=== PATIENT | male | born 1955 | race Caucasian/White ===

== ENCOUNTER 2017-11-06 15:27 | Emergency (ER) | payer OTHER ==
[~2017-11-06] VITALS: Ht 177.8 cm; Wt 85.0 kg
[2017-11-06] MEDS ORDERED: aspirin 81mg tab.chew PO ONE (15:50)
[2017-11-06 15:58] LABS: BASOPHILS % (AUTO) 0.3 % (0-1); EOSINOPHILS % (AUTO) 0.3 % (0-6); HEMATOCRIT 44.1 % (42.0-52.0); HEMOGLOBIN 15.2 g/dl (14.0-17.9); LYMPHOCYTES # (AUTO) 1.1 X10'3 (1.1-4.8); LYMPHOCYTES % (AUTO) 14.3 % (21-51); MEAN CORPUSCULAR HEMOGLOBIN 30.9 PG (27.0-31.0); MEAN CORPUSCULAR HGB CONC 34.5 % (33.0-36.5); MEAN CORPUSCULAR VOLUME 89.5 FL (78-98); MEAN PLATELET VOLUME 8.4 FL (7.4-10.4); MONOCYTES # (AUTO) 0.4 X10'3 (0-0.9); NEUTROPHILS # (AUTO) 6.4 X10'3 (1.8-7.7); NEUTROPHILS % (AUTO) 80.1 % (42-75); PLATELET COUNT 206 X10'3 (140-440); RED BLOOD COUNT 4.92 X10'6 (4.70-6.10)
[2017-11-06 16:09] LABS: PARTIAL THROMBOPLASTIN TIME 26 SECONDS (22-32); PROTHROMBIN TIME 10.2 SECONDS (9.0-12.0)
[2017-11-06 16:13] LABS: ALANINE AMINOTRANSFERASE 47 U/L (12-78); ALBUMIN 3.9 G/DL (3.4-5.0); ALKALINE PHOSPHATASE 61 IU/L (46-116); ANION GAP 11 (8-16); ASPARTATE AMINO TRANSFERASE 24 U/L (10-37); BILIRUBIN,TOTAL 0.5 MG/DL (0.1-1.0); BLOOD UREA NITROGEN 19 MG/DL (7-18); BUN/CREATININE RATIO 20.7 (5.4-32.0); CHLORIDE 106 MMOL/L (99-107); CREATININE 0.92 MG/DL (0.60-1.10); GLUCOSE 100 MG/DL (70-104); POTASSIUM 3.8 MMOL/L (3.5-5.1); SODIUM 142 MMOL/L (135-145); TOTAL CARBON DIOXIDE 24.6 MMOL/L (24-32); eGFR 83 ML/MIN
[2017-11-06 16:37] VITALS: BP 156/110
== END 2017-11-06 16:38 | disposition home or self-care (01) ==
LOC: ER 15:27
DX: I44.7 Left bundle-branch block, unspecified (principal)
CPT/HCPCS: 36415; 71045; 80053; 84484; 85025; 85610; 85730; 93005; 99285

== ENCOUNTER 2019-04-09 06:12 | Day surgery (SDC) | payer MEDICARE, BC ==
[2019-04-08 09:51] LABS: BASOPHILS % (AUTO) 0.4 % (0-1); EOSINOPHILS # (AUTO) 0.1 X10'3 (0-0.9); EOSINOPHILS % (AUTO) 1.2 % (0-6); HEMATOCRIT 44.1 % (42.0-52.0); HEMOGLOBIN 14.9 g/dl (14.0-17.9); LYMPHOCYTES # (AUTO) 1.5 X10'3 (1.1-4.8); LYMPHOCYTES % (AUTO) 19.3 % (21-51); MEAN CORPUSCULAR HEMOGLOBIN 31.3 PG (27.0-31.0); MEAN CORPUSCULAR HGB CONC 33.9 g/dL (33.0-36.5); MEAN CORPUSCULAR VOLUME 92.3 FL (78-98); MEAN PLATELET VOLUME 8.4 FL (7.4-10.4); MONOCYTES # (AUTO) 0.6 X10'3 (0-0.9); MONOCYTES % (AUTO) 7.3 % (2-12); NEUTROPHILS # (AUTO) 5.7 X10'3 (1.8-7.7); NEUTROPHILS % (AUTO) 71.8 % (42-75); PLATELET COUNT 188 X10'3 (140-440); RED BLOOD COUNT 4.78 X10'6 (4.70-6.10); RED CELL DISTRIBUTION WIDTH 14.4 % (11.5-14.5); WHITE BLOOD COUNT 7.9 X10'3 (4.5-11.0)
[2019-04-08 10:02] LABS: PARTIAL THROMBOPLASTIN TIME 28 SECONDS (22-32)
[2019-04-08 10:04] LABS: ALANINE AMINOTRANSFERASE 47 U/L (12-78); ALBUMIN 3.8 G/DL (3.4-5.0); ALKALINE PHOSPHATASE 52 IU/L (46-116); ANION GAP 8 (8-16); ASPARTATE AMINO TRANSFERASE 20 U/L (10-37); BILIRUBIN,TOTAL 0.9 MG/DL (0.1-1.0); BLOOD UREA NITROGEN 22 MG/DL (7-18); BUN/CREATININE RATIO 22.7 (5.4-32.0); CALCIUM 8.9 MG/DL (8.5-10.1); CHLORIDE 108 MMOL/L (99-107); CHOL/HDL RATIO 3.3 (0.00-4.99); CHOLESTEROL 140 MG/DL (0-200); CREATININE 0.97 MG/DL (0.60-1.10); GLUCOSE 87 MG/DL (70-104); HDL CHOLESTEROL 43 MG/DL (35-60); LDL CHOLESTEROL 89 MG/DL (50-100); POTASSIUM 4.4 MMOL/L (3.5-5.1); SODIUM 144 MMOL/L (135-145); TOTAL CARBON DIOXIDE 28.1 MMOL/L (24-32); TOTAL PROTEIN 7.5 G/DL (6.4-8.2); TRIGLYCERIDES 46 MG/DL (20-135); eGFR 78 ML/MIN
[~2019-04-09] VITALS: Ht 180.3 cm; Wt 87.0 kg
[2019-04-09] VITALS (14 sets, daily range): BP systolic 152–171; BP diastolic 78–104
[2019-04-09] MEDS ORDERED: diphenhydrAMINE 25mg capsule PO PRN (06:30)
[2019-04-09] MEDS ORDERED: normal saline 1,000 ML IV SCH (06:30)
[2019-04-09] MEDS ORDERED: LORazepam 0.5 MG tablet PO PRN (06:30)
[2019-04-09] MEDS ORDERED: MULT-933 PO (07:01)
[2019-04-09] MEDS ORDERED: OMEG1CAP2 PO (07:01)
[2019-04-09] MEDS ORDERED: ROSU10TA2 PO (07:01)
[2019-04-09] MEDS ORDERED: ASPI-1265 PO (07:12)
[2019-04-09] MEDS ORDERED: CARV-49 PO (07:12)
[2019-04-09] MEDS ORDERED: LOSA25TA96 PO (07:12)
[2019-04-09] MEDS ORDERED: LIDOcaine/PRILOcaine 5gm cream TP STA (07:15)
[2019-04-09] MEDS ORDERED: LIDOcaine 1% (10mg/ml)w/preservative injection 20ml MDV ONE (07:28)
[2019-04-09] MEDS ORDERED: iohexol 350MG/ML 100ml bottle IV ONE (07:28)
[2019-04-09] MEDS ORDERED: iohexol 350 MG/ML 50ML vial IV ONE ×2 (07:28→08:46)
[2019-04-09] MEDS ORDERED: verapamil 2.5 mg/ml inj IV ONE (07:29)
[2019-04-09] MEDS ORDERED: heparin 1,000unit/ml 10ml vial 10 ML ONE (07:29)
[2019-04-09] MEDS ORDERED: fentaNYL/PF 50MCG/1 ML 2ML syringe ONE (07:29)
[2019-04-09] MEDS ORDERED: midazolam 2 mg/2 ml injection ONE (07:29)
[2019-04-09] MEDS ORDERED: nitroGLYCERIN-Tridil 50MG/D5W 250 ML IV ONE (07:30)
[2019-04-09 08:45] LABS: ISTAT Hct MIX 42 %PCV (42-52); ISTAT O2 SATURATION MIX VENOUS 62 % (60-80); ISTAT SOURCE MIX
[2019-04-09] MEDS ORDERED: normal saline 1000ml 1,000 ML IV SCH (10:10)
[2019-04-09] MEDS ORDERED: HYDROcodone/acetaminophen 10/325mg tab PO PRN (10:40)
[2019-04-09] MEDS ORDERED: acetaminophen 325mg tablet PO PRN (10:40)
[2019-04-09] MEDS ORDERED: hydrALAZINE 25 MG tablet PO STA (14:00)
== END 2019-04-09 15:05 | disposition home or self-care (01) ==
LOC: SSTAY O 06:12
PROVIDERS: ATTEND Internal Medicine Cardiovascular Disease
DX: I25.10 Atherosclerotic heart disease of native coronary artery without angina pectoris (principal); I35.1 Nonrheumatic aortic (valve) insufficiency; I42.0 Dilated cardiomyopathy; I10 Essential (primary) hypertension; I49.5 Sick sinus syndrome; F12.90 Cannabis use, unspecified, uncomplicated; Z72.89 Other problems related to lifestyle
CPT/HCPCS: 36415; 80053; 80061; 82803; 85014; 85025; 85610; 85730; 93005; 93306; 93461; 93567; 99152; 99153; C1769; C1894; J1644; J2001; J2250; J3010; J7030; Q0163; Q9967; 93460; A4620; A5120; C1760; J3490

== ENCOUNTER 2019-06-03 06:28 | Day surgery (SDC) | payer MEDICARE, BC ==
[2019-06-01 11:43] LABS: CLARITY,URINE CLEAR (Clear); COLOR,URINE YELLOW (Yellow); GLUCOSE, URINE NEGATIVE (Neg); KETONES,URINE NEGATIVE (Neg); LEUKOCYTE ESTERASE ,URINE NEGATIVE (Neg); NITRITES, URINE NEGATIVE (Neg); OCCULT BLOOD,URINE NEGATIVE (Neg); PH,URINE 5.5 (4.8-8.0); PROTEIN,URINE NEGATIVE (Neg); UROBILINOGEN,URINE 0.2 E.U/dL (0.2-1.0)
[2019-06-01 11:48] LABS: BASOPHILS % (AUTO) 0.7 % (0-1); EOSINOPHILS # (AUTO) 0.1 X10'3 (0-0.9); EOSINOPHILS % (AUTO) 1.7 % (0-6); LYMPHOCYTES # (AUTO) 1.8 X10'3 (1.1-4.8); LYMPHOCYTES % (AUTO) 26.3 % (21-51); MEAN CORPUSCULAR HGB CONC 34.4 g/dL (33.0-36.5); MEAN PLATELET VOLUME 8.4 FL (7.4-10.4); MONOCYTES # (AUTO) 0.7 X10'3 (0-0.9); MONOCYTES % (AUTO) 9.8 % (2-12); NEUTROPHILS # (AUTO) 4.2 X10'3 (1.8-7.7); NEUTROPHILS % (AUTO) 61.5 % (42-75); PRE OP HEMATOCRIT 42.8 % (42.0-52.0); PRE OP HEMOGLOBIN 14.7 g/dL (14.0-17.9); PRE OP PLATELET COUNT 181 X10'3 (140-440); RED BLOOD COUNT 4.61 X10'6 (4.70-6.10); RED CELL DISTRIBUTION WIDTH 14.1 % (11.5-14.5)
[2019-06-01 11:55] LABS: PRE OP PROTIME 10.5 SECONDS (9.0-12.0)
[2019-06-01 11:57] LABS: UA COLLECTION TYPE CLN CATCH MIDSTREAM
[2019-06-01 11:58] LABS: ALBUMIN 3.8 G/DL (3.4-5.0); ALBUMIN/GLOBULIN RATIO 0.9 (1.1-1.5); ALKALINE PHOSPHATASE 60 IU/L (46-116); BLOOD UREA NITROGEN 29 MG/DL (7-18); BUN/CREATININE RATIO 28.7 (5.4-32.0); CALCIUM 9.2 MG/DL (8.5-10.1); CHLORIDE 106 MMOL/L (99-107); CREATININE 1.01 MG/DL (0.60-1.10); PRE OP ALT 45 U/L (30-65); PRE OP ANION GAP 5 (8-16); PRE OP AST 27 U/L (10-37); PRE OP BILIRUB, TOTAL 0.6 MG/DL (0.0-1.0); PRE OP GLUCOSE 95 MG/DL (70-104); PRE OP SODIUM 139 MMOL/L (135-145); TOTAL CARBON DIOXIDE 28.4 MMOL/L (24-32); TOTAL PROTEIN 7.9 G/DL (6.4-8.2); eGFR 74 ML/MIN
[~2019-06-03] VITALS: Ht 180.3 cm; Wt 88.5 kg
[2019-06-03] VITALS (10 sets, daily range): BP systolic 142–175; BP diastolic 81–99
[~2019-06-03 06:28] MED LIST: ASPI-1265 PO; CARV-49 PO; DOCUMENT DATE & TIME OF BETA-BLOCKER PO ONE; LOSA25TA96 PO; MULT-933 PO; OMEG1CAP2 PO; ROSU10TA2 PO; cefazolin/dext.iso 2gm/50ml 50 ML IV ONE; famotidine 20mg tablet PO ONE; ringers solution, lacted 1,000 ML IV SCH
[2019-06-03] MEDS ORDERED: ceFAZolin 1000mg inj ONE ×2 (07:42→07:43)
[2019-06-03] MEDS ORDERED: bacitracin 15gm ointment TP ONE (07:42)
[2019-06-03] MEDS ORDERED: BUPIVAcaine/PF 2.5 mg/ml (0.25%) 30ml vial ONE (07:42)
[2019-06-03] MEDS ORDERED: ringers solution, lacted 1,000 ML IV SCH (08:16)
[2019-06-03] MEDS ORDERED: morphine 4 MG/ML inj SYRINge IV PRN ×2 (08:20)
[2019-06-03] MEDS ORDERED: ondansetron/PF 4mg/2ml inj IV PRN (08:20)
[2019-06-03] MEDS ORDERED: proCHLORperazine 10 MG/2 ml inj IV PRN (08:20)
[2019-06-03] MEDS ORDERED: meperidine/PF 25mg/ml syringe IV PRN ×3 (08:20)
[2019-06-03] MEDS ORDERED: sevoflurane 250ml liquid IH ONE (08:26)
[2019-06-03] MEDS ORDERED: midazolam 2 mg/2 ml injection ONE (08:29)
[2019-06-03] MEDS ORDERED: rocuronium 10mg/ml inj IV ONE (08:29)
[2019-06-03] MEDS ORDERED: propofol inj 20 ML IV ONE (08:29)
[2019-06-03] MEDS ORDERED: fentaNYL /PF 50mcg/ml 5ml ampule ONE (08:29)
[2019-06-03] MEDS ORDERED: acetaminophen 1,000mg/100ml IV 100 ML IV ONE (09:24)
[2019-06-03] MEDS ORDERED: glycopyrrolate 0.2mg/ml inj ONE (09:40)
[2019-06-03] MEDS ORDERED: neostigmine methylsulfate 1 MG/ML 10ml vial ONE (09:40)
--- NOTE | 2019-06-03 10:00 | NUR ---
Received from OR via BED , accompanied by Anesthesiologist DEBORA and report given by Anesthesiolgist. PATIENT WAKING UP, DENIES PAIN, V/S WNL, NEUROVASCULAR CHECKS INTACT, 20G PIV LUE, SCD ON, 3 BANDAIDS TO LAP SIGHTS OF ABDOMEN CDI.
[2019-06-03] MEDS ORDERED: HYDROcodone/acetaminophen 10/325mg tab PO ONE (11:00)
[2019-06-03] MEDS ORDERED: enalaprilat dihydrate 2.5mg/2ml vial IV ONE (11:05)
--- NOTE | 2019-06-03 11:06 | NUR ---
PATIENT HTN, MEDS ORDERED PER DR BERNARD SEE GINA
--- NOTE | 2019-06-03 11:45 | NUR ---
PATIENT A&OX4, DENIES PAIN, V/S WNL, NEUROVASCULAR CHECKS INTACT, 20G PIV LUE D/C, SCD OFF, 4 BANDAIDS TO LAP SIGHTS OF ABDOMEN CDI.. I HAVE REVIEWED D/C INSTRUCTIONS WITH PATIENT AND FAMILY HAVE VERBALIZED UNDERSTANDING.PATIENT WAS D/C HOME WITH ALL BELONGINGS AND FAMILY GAVE TRANSPORT HOME.
== END 2019-06-03 11:45 | disposition home or self-care (01) ==
LOC: PAS 06:28
PROVIDERS: ATTEND Surgery
DX: K43.9 Ventral hernia without obstruction or gangrene (principal); I10 Essential (primary) hypertension; E78.00 Pure hypercholesterolemia, unspecified; Z79.82 Long term (current) use of aspirin; Z79.899 Other long term (current) drug therapy; Z98.52 Vasectomy status; Z72.89 Other problems related to lifestyle; F12.90 Cannabis use, unspecified, uncomplicated; Z79.01 Long term (current) use of anticoagulants; Z80.1 Family history of malignant neoplasm of trachea, bronchus and lung; Z81.1 Family history of alcohol abuse and dependence
CPT/HCPCS: 36415; 49652; 71046; 80053; 81003; 82948; 85025; 85610; 85730; C1758; C1781; J0131; J0690; J2175; J2250; J2405; J2704; J2710; J3010; J3490; J7120; A4215; A4618; A7000

== ENCOUNTER 2019-09-02 06:17 | Inpatient (IN) | payer MEDICARE, BC ==
[2019-09-01 11:10] LABS: BASOPHILS % (AUTO) 0.6 % (0-1); EOSINOPHILS # (AUTO) 0.1 X10'3 (0-0.9); EOSINOPHILS % (AUTO) 1.6 % (0-6); HEMATOCRIT 42.2 % (42.0-52.0); HEMOGLOBIN 14.5 g/dl (14.0-17.9); LYMPHOCYTES # (AUTO) 1.5 X10'3 (1.1-4.8); LYMPHOCYTES % (AUTO) 20.8 % (21-51); MEAN CORPUSCULAR HEMOGLOBIN 31.2 PG (27.0-31.0); MEAN CORPUSCULAR HGB CONC 34.4 g/dL (33.0-36.5); MEAN CORPUSCULAR VOLUME 90.5 FL (78-98); MEAN PLATELET VOLUME 8.6 FL (7.4-10.4); MONOCYTES # (AUTO) 0.7 X10'3 (0-0.9); NEUTROPHILS # (AUTO) 5.1 X10'3 (1.8-7.7); PLATELET COUNT 194 X10'3 (140-440); RED BLOOD COUNT 4.66 X10'6 (4.70-6.10); RED CELL DISTRIBUTION WIDTH 14.6 % (11.5-14.5); WHITE BLOOD COUNT 7.4 X10'3 (4.5-11.0)
[2019-09-01 11:19] LABS: PARTIAL THROMBOPLASTIN TIME 26 SECONDS (22-32)
[2019-09-01 11:44] LABS: ALBUMIN 3.7 G/DL (3.4-5.0); ANION GAP 8 (8-16); BLOOD UREA NITROGEN 28 MG/DL (7-18); BUN/CREATININE RATIO 29.5 (5.4-32.0); CALCIUM 8.9 MG/DL (8.5-10.1); CHLORIDE 108 MMOL/L (99-107); CREATININE 0.95 MG/DL (0.60-1.10); GLUCOSE 88 MG/DL (70-104); POTASSIUM 4.4 MMOL/L (3.5-5.1); SODIUM 142 MMOL/L (135-145); TOTAL CARBON DIOXIDE 26.5 MMOL/L (24-32); eGFR 80 ML/MIN
[~2019-09-02] VITALS: Ht 177.8 cm; Wt 93.1 kg
[2019-09-02] VITALS (17 sets, daily range): BP systolic 120–152; BP diastolic 85–106
[~2019-09-02 06:17] MED LIST changes: -DOCUMENT DATE & TIME OF BETA-BLOCKER PO ONE; -cefazolin/dext.iso 2gm/50ml 50 ML IV ONE; -famotidine 20mg tablet PO ONE; -ringers solution, lacted 1,000 ML IV SCH
[2019-09-02] MEDS: normal saline 1000ml 1,000 ML IV SCH ×3 (06:30→20:37)
[2019-09-02] MEDS ORDERED: cefazolin/dext.iso 2gm/100ml 100 ML IV ONE (06:35)
[2019-09-02] MEDS ORDERED: DICL1KIT14 (06:41)
[2019-09-02] MEDS ORDERED: AMLO5TAB4 PO (06:41)
[2019-09-02] MEDS ORDERED: iohexol 350 MG/ML 50ML vial IV ONE ×2 (07:28→08:37)
[2019-09-02] MEDS ORDERED: midazolam 2 mg/2 ml injection ONE ×3 (07:28→09:35)
[2019-09-02] MEDS ORDERED: fentaNYL/PF 50MCG/1 ML 2ML syringe ONE ×3 (07:28→09:35)
[2019-09-02] MEDS ORDERED: ceFAZolin 1000mg inj ONE (07:28)
[2019-09-02] MEDS ORDERED: LIDOcaine 1% W/epiNEPHrine 1:100,000 20ml vial ONE ×2 (07:29→08:28)
[2019-09-02] MEDS ORDERED: diphenhydrAMINE 50 mg/ml inj ONE (08:22)
[2019-09-02] MEDS ORDERED: proCHLORperazine 10 MG/2 ml inj ONE (08:53)
--- NOTE | 2019-09-02 11:10 | NUR ---
PT OFF FLOOR TO XRAY
[2019-09-02] MEDS ORDERED: LORazepam 1 MG tablet PO PRN (11:15)
[2019-09-02] MEDS ORDERED: HYDROcodone/acetaminophen 5mg/325mg tablet PO PRN (11:15)
--- NOTE | 2019-09-02 11:25 | NUR ---
PT BACK FROM XRAY
[2019-09-02] MEDS: HYDROcodone/acetaminophen 10/325mg tab PO PRN ×2 (11:41→18:21)
[2019-09-02] MEDS ORDERED: vancomycin/NS 1 GM ADD-VANTAGE 250 ML X 1 DOSE IV ONE (13:00)
[2019-09-02] MEDS ORDERED: ondansetron/PF 4mg/2ml inj ONE (13:28)
--- NOTE | 2019-09-02 13:37 | NUR ---
pt with extreme nausea, vommitting, administed zofran
[2019-09-02] MEDS ORDERED: hydrALAZINE 20mg/ml inj. IV PRN (16:50)
--- NOTE | 2019-09-02 17:30 | NUR ---
RECEIVED REPORT AND PATIENT FROM SHORT STAY. ASSISTED PATIENT TO BED IN ROOM 319. HEART RHYTHM V PACED.DRESSING TO LT UPPER ANTERIOR CHEST CDI. RADIAL PULSE POSITIVE PER PALPATION. 18 WIL[address] AT LT FA INTACT. PHONED SHORT STAY NURSE REGARDING MEDICATION SHEET, AND TRANSFER ORDERS; NURSE STATED SHE WOULD PUT IN ORDERS AND ADDRESS MEDICATIONS NOT DOCUMENTED. MEDICATED PATIENT WITH NORCO PO, AND ZOFRAN. REPORTED OFF TO GRADUATE ASSISTANT ATHLETIC TRAINER. BED LOCKED AND LOW, CALL LIGHT IN REACH.PATIENT'S FAMILY AT HIS SIDE. PATIENT PLACED ON O2 VIA N/C. Addendum: 09/02/19 at 2022 by Gracia Uribe RN Amended: Links added.
[2019-09-02] MEDS ORDERED: ondansetron/PF 4mg/2ml inj IV PRN (17:35)
[2019-09-02] MEDS: carvedilol 6.25mg tablet PO SCH (20:11)
[2019-09-02] MEDS: sennosides/docusate sodium tablet PO SCH (20:11)
--- NOTE | 2019-09-02 20:27 | NUR ---
Paged DR. Reeves at [phone] and spoke with Kirt and left a message for Dr. Reeves. He called back and informed him regarding the patient's Heart being 112, short of breath with O2 sat of 92% on room air, started on 2 Liter O2 and patient's blood pressure being 157/103. He ordered to give the patient's Carvidolol now, wait 30 minutes, if his blood pressure did not go down, give his amlodipine and wait for an hour and if the blood pressure still high, give the patient's losartan. He also ordered to check patient's respirator rate for a full minute. No other orders were given at this time.
[2019-09-02] MEDS ORDERED: atorvastatin 20mg tablet PO SCH (21:00)
[2019-09-03 02:00] VITALS: BP 128/92
[2019-09-03] MEDS: HYDROcodone/acetaminophen 10/325mg tab PO PRN (05:22)
[2019-09-03 06:00] VITALS: BP 145/102
--- NOTE | 2019-09-03 06:09 | NUR ---
Patient in room MED 310. I have received report from Lindy LOUISE and had the opportunity to ask questions and assume patient care.
--- NOTE | 2019-09-03 06:25 | NUR ---
Problems reprioritized. Patient report given to Jory-DANI, questions answered & plan of care reviewed with .
[2019-09-03] MEDS: sennosides/docusate sodium tablet PO SCH (07:43)
[2019-09-03] MEDS: carvedilol 6.25mg tablet PO SCH (07:43)
[2019-09-03] MEDS ORDERED: losartan 25mg tablet PO SCH (08:00)
[2019-09-03] MEDS ORDERED: aspirin 81mg tab.chew PO SCH (08:00)
[2019-09-03] MEDS ORDERED: amLODIPine 5mg tablet PO SCH (08:00)
[2019-09-03] MEDS ORDERED: CEPH-572 PO (10:12)
[2019-09-03 11:00] VITALS: BP 124/79
--- NOTE | 2019-09-03 12:00 | NUR ---
Pt is stable for discharge per md orders, discharge instructions reviewed w/ pt and , new medication prescription called in to [facility] and clean dry dressing in place, pt discharge from unit at 1200 to home, picked up by and son to private vehicle, all belongings w/ pt at time of discharge,
--- NOTE | 2019-09-07 09:55 | NUR ---
Case management DC follow up: pt currently at short stay (09/07/2019)
== END 2019-09-03 11:05 | disposition home or self-care (01) | DRG 227 ==
LOC: SSTAY O 06:17 → MED 3N 17:25
PROVIDERS: ADMIT Internal Medicine Cardiovascular Disease; ATTEND Internal Medicine Cardiovascular Disease
PROC: 0JH609Z Insertion of Cardiac Resynchronization Defibrillator Pulse Generator into Chest Subcutaneous Tissue and Fascia, Open Approach (ICD-10-PCS; principal; 2019-09-02)
PROC: 02HK3KZ Insertion of Defibrillator Lead into Right Ventricle, Percutaneous Approach (ICD-10-PCS; 2019-09-02)
PROC: 02HL3KZ Insertion of Defibrillator Lead into Left Ventricle, Percutaneous Approach (ICD-10-PCS; 2019-09-02)
PROC: 02H63KZ Insertion of Defibrillator Lead into Right Atrium, Percutaneous Approach (ICD-10-PCS; 2019-09-02)
DX: I42.8 Other cardiomyopathies (principal); I50.22 Chronic systolic (congestive) heart failure; J93.9 Pneumothorax, unspecified; I49.5 Sick sinus syndrome; I44.7 Left bundle-branch block, unspecified; R07.9 Chest pain, unspecified; I35.1 Nonrheumatic aortic (valve) insufficiency; R53.83 Other fatigue; I49.8 Other specified cardiac arrhythmias; E78.5 Hyperlipidemia, unspecified; Z79.82 Long term (current) use of aspirin; I25.10 Atherosclerotic heart disease of native coronary artery without angina pectoris; Z79.899 Other long term (current) drug therapy; I71.2 Thoracic aortic aneurysm, without rupture; R40.4 Transient alteration of awareness; R94.31 Abnormal electrocardiogram [ECG] [EKG]; I11.0 Hypertensive heart disease with heart failure
CPT/HCPCS: 33225; 33249; 36415; 71046; 80048; 85025; 85610; 85730; 93005; 99152; 99153; A4565; A4620; A6449; C1769; C1882; C1887; C1894; C1895; C1900; GO378; J0690; J0780; J1200; J2250; J2405; J3010; J3370; J7030; Q9967

== ENCOUNTER 2019-09-04 16:12 | Outpatient (CLI) | payer MEDICARE, BC ==
[~2019-09-04 16:12] MED LIST changes: +AMLO5TAB4 PO; +CEPH-572 PO; +DICL1KIT14; -MULT-933 PO; -OMEG1CAP2 PO
== END 2019-09-04 23:59 | disposition home or self-care (01) ==
LOC: RAD 16:12
PROVIDERS: ATTEND Internal Medicine Cardiovascular Disease
DX: Z09 Encounter for follow-up examination after completed treatment for conditions other than malignant neoplasm (principal); J95.811 Postprocedural pneumothorax
CPT/HCPCS: 71046

== ENCOUNTER 2019-09-07 08:56 | Day surgery (SDC) | payer MEDICARE, BC ==
[~2019-09-07] VITALS: Ht 177.8 cm; Wt 91.4 kg
[2019-09-07] VITALS (8 sets, daily range): BP systolic 139–167; BP diastolic 80–102
[2019-09-07] MEDS ORDERED: midazolam 2 mg/2 ml injection ONE ×2 (09:23→10:50)
[2019-09-07] MEDS ORDERED: LIDOcaine 1% W/epiNEPHrine 1:100,000 20ml vial ONE ×2 (09:23→10:14)
[2019-09-07] MEDS ORDERED: fentaNYL/PF 50MCG/1 ML 2ML syringe ONE (09:23)
[2019-09-07] MEDS ORDERED: ceFAZolin 1000mg inj ONE (09:24)
[2019-09-07] MEDS ORDERED: iohexol 350 MG/ML 50ML vial IV ONE (09:24)
[2019-09-07] MEDS ORDERED: vancomycin 1,000mg inj ONE (09:56)
[2019-09-07] MEDS ORDERED: clindamycin phosphate 150mg/ml inj. ONE (09:56)
[2019-09-07] MEDS ORDERED: clindamycin 600mg/D5W 50ml 50 ML IV ONE ×2 (09:57→12:55)
[2019-09-07 09:59] LABS: BASOPHILS % (AUTO) 0.4 % (0-1); EOSINOPHILS # (AUTO) 0.1 X10'3 (0-0.9); EOSINOPHILS % (AUTO) 1.1 % (0-6); HEMATOCRIT 44.5 % (42.0-52.0); HEMOGLOBIN 15.3 g/dl (14.0-17.9); LYMPHOCYTES # (AUTO) 1.6 X10'3 (1.1-4.8); LYMPHOCYTES % (AUTO) 17.1 % (21-51); MEAN CORPUSCULAR HEMOGLOBIN 31.5 PG (27.0-31.0); MEAN CORPUSCULAR HGB CONC 34.4 g/dL (33.0-36.5); MEAN CORPUSCULAR VOLUME 91.5 FL (78-98); MEAN PLATELET VOLUME 8.8 FL (7.4-10.4); MONOCYTES # (AUTO) 0.8 X10'3 (0-0.9); MONOCYTES % (AUTO) 8.5 % (2-12); NEUTROPHILS % (AUTO) 72.9 % (42-75); PLATELET COUNT 179 X10'3 (140-440); RED BLOOD COUNT 4.87 X10'6 (4.70-6.10); RED CELL DISTRIBUTION WIDTH 14.2 % (11.5-14.5); WHITE BLOOD COUNT 9.6 X10'3 (4.5-11.0)
[2019-09-07] MEDS ORDERED: normal saline 1000ml 1,000 ML IV SCH (10:00)
[2019-09-07] MEDS ORDERED: ondansetron/PF 4mg/2ml inj IV PRN (10:00)
[2019-09-07] MEDS ORDERED: CLINDAMYCIN/D5W 900mg/50ml 50 ML IV ONE (10:00)
[2019-09-07 10:06] LABS: ALBUMIN 3.8 G/DL (3.4-5.0); ANION GAP 4 (8-16); BLOOD UREA NITROGEN 23 MG/DL (7-18); BUN/CREATININE RATIO 22.3 (5.4-32.0); CALCIUM 9.1 MG/DL (8.5-10.1); CHLORIDE 108 MMOL/L (99-107); CREATININE 1.03 MG/DL (0.60-1.10); GLUCOSE 97 MG/DL (70-104); POTASSIUM 3.9 MMOL/L (3.5-5.1); SODIUM 141 MMOL/L (135-145); TOTAL CARBON DIOXIDE 29.5 MMOL/L (24-32); eGFR 72 ML/MIN
[2019-09-07] MEDS ORDERED: HYDROmorphone 1 mg/ml syringe ONE ×2 (10:24→12:01)
[2019-09-07] MEDS ORDERED: ondansetron/PF 4mg/2ml inj IV SCH (12:49)
[2019-09-07] MEDS ORDERED: HYDROcodone/acetaminophen 5mg/325mg tablet PO PRN (12:55)
[2019-09-07] MEDS ORDERED: HYDROcodone/acetaminophen 10/325mg tab PO PRN (12:55)
== END 2019-09-07 17:00 | disposition home or self-care (01) ==
LOC: SSTAY O 08:56
PROVIDERS: ATTEND Internal Medicine Cardiovascular Disease
DX: T82.120A Displacement of cardiac electrode, initial encounter (principal); Y83.8 Other surgical procedures as the cause of abnormal reaction of the patient, or of later complication, without mention of misadventure at the time of the procedure; Y92.89 Other specified places as the place of occurrence of the external cause; Z79.01 Long term (current) use of anticoagulants
CPT/HCPCS: 33224; 33244; 36415; 71046; 80048; 85025; 85610; 99152; 99153; C1769; C1894; C1900; J0690; J1170; J2250; J2405; J3010; J3370; J3490; Q9967; 33226; A4620